=== PATIENT | female | born 1945 | race Caucasian/White ===

== ENCOUNTER 2018-09-04 13:59 | Observation (INO) | payer MEDICARE, BC ==
[2018-09-04] MEDS ORDERED: IPRATROPIUM/ALBUTEROL 0.5-2.5 MG/3 ML AMPUL NEB ONE (14:27)
[2018-09-04] MEDS ORDERED: METHYLPREDNISOLONE INJ 125 MG/2 ML SDV IV ONE (14:28)
[2018-09-04] MEDS ORDERED: ACETAMINOPHEN 325 MG TABLET PO ONE (14:44)
--- NOTE | 2018-09-04 14:44 | ER Document Report ---
ED Medical Screen (RME) - General Chief Complaint: Shortness Of Breath Stated Complaint: DIFFICULTY BREATHING Time Seen by Provider: 09/04/18 14:15 Notes: Patient is a 73-year-old female presents to the emergency department for generalized cough, congestion, chills, shortness of breath, chest tightness upon deep inspiration. Patient states she does have a significant history of asthma does take DuoNeb treatments and prednisone regularly. States she is here visiting and her primary care provider gave her a prescription for prednisone to take "just in case." Patient states she left it at home and has not taking it. Patient states she presents to the emergency department because her respiratory distress increased and she was worried. Patient states she did not recently take any of her albuterol treatments either. GENERAL: Alert, interacts well. Tachypneic LUNGS: Expiratory wheezes heard bilateral bases, no discernible rales, or rhonchi. HEART: Tachycardic rate and rhythm. No murmur I have greeted and performed a rapid initial assessment of this patient. A comprehensive ED assessment and evaluation of the patient, analysis of test results and completion of the medical decision making process will be conducted by additional ED providers. TRAVEL OUTSIDE OF THE [place] IN LAST 30 DAYS: No - Related Data Allergies/Adverse Reactions: atorvastatin [From Lipitor] Allergy (Verified 09/04/18 14:07) azithromycin [From Zithromax] Allergy (Verified 09/04/18 14:07) cephalexin [From Keflex] Allergy (Verified 09/04/18 14:07) estradiol [From Estraderm] Allergy (Verified 09/04/18 14:07) fluvastatin [From Lescol] Allergy (Verified 09/04/18 14:07) gemfibrozil [From Lopid] Allergy (Verified 09/04/18 14:07) levofloxacin [From Levaquin] Allergy (Verified 09/04/18 14:07) metoprolol [From Lopressor] Allergy (Verified 09/04/18 14:07) niacin Allergy (Verified 09/04/18 14:07) pravastatin [From Pravachol] Allergy (Verified 09/04/18 14:07) prednisone [From Deltasone] Allergy (Verified 09/04/18 14:07) tiotropium [From Spiriva with HandiHaler] Allergy (Verified 09/04/18 14:07) Past Medical History - Social History Chew tobacco use (# tins/day): No Frequency of alcohol use: None Drug Abuse: None - Past Medical History Cardiac Medical History: Reports: Hx Hypercholesterolemia, Hx Hypertension Pulmonary Medical History: Reports: Hx Asthma Endocrine Medical History: Reports: Hx Diabetes Mellitus Type 2 Renal/ Medical History: Reports: Hx Kidney Stones. Denies: Hx Peritoneal Dialysis Past Surgical History: Reports: Hx Hysterectomy, Hx Oral Surgery, Hx Orthopedic Surgery - right knee, right shoulder, Hx Tubal Ligation Physical Exam - Vital signs Vitals: Temp Pulse Resp BP Pulse Ox 100.7 F H 131 H 22 H 147/68 H 94 09/04/18 14:10 09/04/18 14:10 09/04/18 14:10 09/04/18 14:10 09/04/18 14:10 Course - Vital Signs Vital signs: Temp Pulse Resp BP Pulse Ox 100.7 F H 131 H 22 H 147/68 H 94 09/04/18 14:10 09/04/18 14:10 09/04/18 14:10 09/04/18 14:10 09/04/18 14:10
[2018-09-04 15:28] LABS: ABSOLUTE EOSINOPHILS # (AUTO) 0.2 10^3/uL (0.0-0.6); ABSOLUTE LYMPHOCYTES (AUTO) 0.9 10^3/uL (0.5-4.7); ABSOLUTE MONOCYTES (AUTO) 0.3 10^3/uL (0.1-1.4); ABSOLUTE NEUT (AUTO) 7.7 10^3/uL (1.7-8.2); BASOPHILS % (AUTO) 0.5 % (0-2); EOSINOPHILS % (AUTO) 2.2 % (0-6); HEMATOCRIT 38.7 % (36.0-47.0); HEMOGLOBIN 13.4 g/dL (12.0-15.5); LYMPHOCYTES % (AUTO) 10.2 % (13-45); MEAN CORPUSCULAR HEMOGLOBIN 27.7 pg (27.0-33.4); MEAN CORPUSCULAR HGB CONC 34.6 g/dL (32.0-36.0); MEAN CORPUSCULAR VOLUME 80 fl (80-97); MONOCYTES % (AUTO) 2.8 % (3-13); PLATELET COUNT 201 10^3/uL (150-450); RED BLOOD COUNT 4.84 10^6/uL (3.72-5.28); RED CELL DISTRIBUTION WIDTH 14.7 % (11.5-14.0); SEGMENTED NEUTROPHILS % (AUTO) 84.3 % (42-78); TOTAL CELLS COUNTED % (AUTO) 100 %; WHITE BLOOD COUNT 9.2 10^3/uL (4.0-10.5)
[2018-09-04 15:31] LABS: APPEARANCE,URINE CLEAR; BILIRUBIN,URINE NEGATIVE (NEGATIVE); COLOR,URINE YELLOW; GLUCOSE, URINE NEGATIVE (NEGATIVE); KETONES,URINE NEGATIVE (NEGATIVE); LEUKOCYTE ESTERASE,URINE NEGATIVE (NEGATIVE); NITRITE,URINE NEGATIVE (NEGATIVE); PROTEIN,URINE NEGATIVE (NEGATIVE); URINE SPECIFIC GRAVITY 1.016; UROBILINOGEN,URINE NEGATIVE mg/dL (<2.0)
[2018-09-04 15:43] LABS: ALANINE AMINOTRANSFERASE 39 U/L (9-52); ALBUMIN 4.9 g/dL (3.5-5.0); ALKALINE PHOSPHATASE 79 U/L (38-126); ANION GAP 12 (5-19); ASPARTATE AMINO TRANSFERASE 24 U/L (14-36); BILIRUBIN,DIRECT 0.2 mg/dL (0.0-0.4); BILIRUBIN,TOTAL 0.8 mg/dL (0.2-1.3); BLOOD UREA NITROGEN 28 mg/dL (7-20); CALCIUM 10.5 mg/dL (8.4-10.2); CARBON DIOXIDE 27 mmol/L (22-30); CHLORIDE 102 mmol/L (98-107); GLUCOSE 164 mg/dL (75-110); POTASSIUM 4.6 mmol/L (3.6-5.0); SODIUM 141.3 mmol/L (137-145)
[2018-09-04 15:50] LABS: A TYPE INFLUENZA AG NEGATIVE (NEGATIVE); B INFLUENZA AG NEGATIVE (NEGATIVE)
--- NOTE | 2018-09-04 16:02 | RADIOLOGY REPORT (SQ) ---
EXAM DESCRIPTION: CHEST 2 VIEWS COMPLETED DATE/TIME: 09/04/2018 3:29 pm REASON FOR STUDY: fever, sob COMPARISON: None. EXAM PARAMETERS: NUMBER OF VIEWS: two views TECHNIQUE: Digital Frontal and Lateral radiographic views of the chest acquired. RADIATION DOSE: NA LIMITATIONS: none FINDINGS: LUNGS AND PLEURA: Triangular density overlying the right anterior 1st rib not seen on the lateral view. This is probably overlapping normal structures or azygos lobe but cannot exclude a pul monary nodule. MEDIASTINUM AND HILAR STRUCTURES: No masses or contour abnormalities. HEART AND VASCULAR STRUCTURES: Heart normal size. No evidence for failure. BONES: No acute findings. HARDWARE: None in the chest. OTHER: No other significant finding. IMPRESSION: Possible right upper lung nodule. No infiltrate. TECHNICAL DOCUMENTATION: JOB ID: [id number]- All Rights Reserved Reading location - IP/workstation name: [email or web address]
[2018-09-04] MEDS ORDERED: NORMAL SALINE 1000 ML 1,000 ML IV ONE (16:12)
--- NOTE | 2018-09-04 16:12 | ER Document Report ---
ED General - General Chief Complaint: Shortness Of Breath Stated Complaint: DIFFICULTY BREATHING Time Seen by Provider: 09/04/18 14:15 TRAVEL OUTSIDE OF THE [place] IN LAST 30 DAYS: No - HPI Notes: Patient is a 73-year-old female that presents to the emergency department for chief complaint of fever and cough. Patient reports fever that began today. She states she had chills with some associated nausea as well. She denies any vomiting abdominal pain or diarrhea. Patient has a history of severe asthma which is managed by her steam blocker back home in [place]. She is on prednisone 10 mg daily. Patient states she has not been on the prednisone since coming to [place] which has been about 7 days since her breathing had been improved. She did have an influenza vaccine this year. She reports cough with no increased sputum. She denies any dysuria or urinary frequency. Patient has received Solu-Medrol, Tylenol, and DuoNeb in triage and currently states she is feeling better. Past Medical History: Asthma Past Surgical History: Reviewed in chart Social History: Denies tobacco and alcohol use Family History: Reviewed and noncontributory for presenting illness Allergies: Reviewed, see documented allergy list. REVIEW OF SYSTEMS: CONSTITUTIONAL : fever chills diaphoresis No recent illness EENT: No vision changes No congestion No sore throat CARDIOVASCULAR: No chest pain No palpitations RESPIRATORY: shortness of breath cough difficulty breathing GASTROINTESTINAL: No abdominal pain nausea No vomiting No diarrhea GENITOURINARY: No dysuria No hematuria No difficulty urinating MUSCULOSKELETAL: No back pain No leg pain No arm pain SKIN: No rashes No lesions LYMPHATIC: No swollen, enlarged glands. NEUROLOGICAL: No lightheadedness No headache No weakness No paresthesias PSYCHIATRIC: No anxiety No depression PHYSICAL EXAMINATION: Vital signs reviewed, nursing noted reviewed. GENERAL: Well-appearing, well-nourished and in no acute distress. HEAD: Atraumatic, normocephalic. EYES: Eyes appear normal, extraocular movements intact, sclera anicteric, conjunctiva are normal. ENT: nares patent, oropharynx clear without exudates. Moist mucous membranes. NECK: Normal range of motion, supple without lymphadenopathy LUNGS: Breath sounds have expiratory wheezing bilaterally with no accessory muscle use or tachypnea HEART: Tachycardic rate and regular rhythm without murmurs ABDOMEN: Soft, nontender, normoactive bowel sounds. No rebound, guarding, or rigidity. No masses appreciated. EXTREMITIES: Nontender, good range of motion, no pitting or edema. NEUROLOGICAL: No focal neurological deficits. Moves all extremities spontaneously Motor and sensory grossly intact on exam. PSYCH: Normal mood, normal affect. SKIN: Warm, Dry, normal turgor, no rashes or lesions noted on exposed skin - Related Data Allergies/Adverse Reactions: atorvastatin [From Lipitor] Allergy (Verified 09/04/18 14:07) azithromycin [From Zithromax] Allergy (Verified 09/04/18 14:07) cephalexin [From Keflex] Allergy (Verified 09/04/18 14:07) estradiol [From Estraderm] Allergy (Verified 09/04/18 14:07) fluvastatin [From Lescol] Allergy (Verified 09/04/18 14:07) gemfibrozil [From Lopid] Allergy (Verified 09/04/18 14:07) levofloxacin [From Levaquin] Allergy (Verified 09/04/18 14:07) metoprolol [From Lopressor] Allergy (Verified 09/04/18 14:07) niacin Allergy (Verified 09/04/18 14:07) pravastatin [From Pravachol] Allergy (Verified 09/04/18 14:07) prednisone [From Deltasone] Allergy (Verified 09/04/18 14:07) tiotropium [From Spiriva with HandiHaler] Allergy (Verified 09/04/18 14:07) Past Medical History - Social History Smoking Status: Never Smoker Chew tobacco use (# tins/day): No Frequency of alcohol use: None Drug Abuse: None Family History: Reviewed & Not Pertinent Patient has suicidal ideation: No Patient has homicidal ideation: No - Past Medical History Cardiac Medical History: Reports: Hx Hypercholesterolemia, Hx Hypertension Pulmonary Medical History: Reports: Hx Asthma Endocrine Medical History: Reports: Hx Diabetes Mellitus Type 2 Renal/ Medical History: Reports: Hx Kidney Stones. Denies: Hx Peritoneal Dialysis Past Surgical History: Reports: Hx Hysterectomy, Hx Oral Surgery, Hx Orthopedic Surgery - right knee, right shoulder, Hx Tubal Ligation Physical Exam - Vital signs Vitals: Temp Pulse Resp BP Pulse Ox 100.7 F H 131 H 22 H 147/68 H 94 09/04/18 14:10 09/04/18 14:10 09/04/18 14:10 09/04/18 14:10 09/04/18 14:10 Course - Re-evaluation Re-evalutation: 09/04/18 16:12 Vitals reviewed. Nursing notes reviewed. Patient is in no acute respiratory distress and oxygenating well on room air. Her symptoms have improved since receiving medication in triage. 09/04/18 17:20 Patient re-evaluated. her oxygen levels have decreased after aerosol treatments. She is now 90% on room air. She is in no acute respiratory distress. Patient was started on 2 L nasal cannula oxygen which improved her saturation to 95%. L elmer sounds are still wheezy bilaterally. Patient's lab work shows lactic acidosis at 2.2. The remainder of her workup is unremarkable. Despite receiving Tylenol and fluids patient has continued to be tachycardic. Her heart rate was in the 130s at presentation and is 115 currently. clinically patient has pneumonia and is meeting sepsis criteria by vital signs and elevated lactate. She was given doxycycline for likely community-acquired pneumonia. Patient's chest x-ray shows an abnormality in the right upper lung which she believes is a result of a trauma that she has had previously. She states there is always something abnormal on her chest x-ray but she cannot further explain what. Since she is requiring oxygen and is meeting sepsis criteria she will be admitted to the hospital for further management. Case discussed with admitting physician. Laboratory 09/04/18 09/04/18 09/04/18 14:34 14:34 14:34 WBC 9.2 RBC 4.84 Hgb 13.4 Hct 38.7 MCV 80 MCH 27.7 MCHC 34.6 RDW 14.7 H Plt Count 201 Seg Neutrophils % 84.3 H Lymphocytes % 10.2 L Monocytes % 2.8 L Eosinophils % 2.2 Basophils % 0.5 Absolute Neutrophils 7.7 Absolute Lymphocytes 0.9 Absolute Monocytes 0.3 Absolute Eosinophils 0.2 Absolute Basophils 0.0 Sodium 141.3 Potassium 4.6 Chloride 102 Carbon Dioxide 27 Anion Gap 12 BUN 28 H Creatinine 1.20 Est GFR ( Amer) 54 L Est GFR (Non-Af Amer) 44 L Glucose 164 H Lactic Acid 2.2 H Calcium 10.5 H Total Bilirubin 0.8 Direct Bilirubin 0.2 Neonat Total Bilirubin Not Reportable Neonat Direct Bilirubin Not Reportable Neonat Indirect Bili Not Reportable AST 24 ALT 39 Alkaline Phosphatase 79 Troponin I Total Protein 8.0 Albumin 4.9 Urine Color Urine Appearance Urine pH Ur Specific [place] Urine Protein Urine Glucose (UA) Urine Ketones Urine Blood Urine Nitrite Urine Bilirubin Urine Urobilinogen Ur Leukocyte Esterase Urine WBC (Auto) Urine RBC (Auto) Urine Bacteria (Auto) Squamous Epi Cells Auto Urine Mucus (Auto) Urine Ascorbic Acid Influenza A (Rapid) Influenza B (Rapid) 09/04/18 09/04/18 09/04/18 14:35 14:39 15:00 WBC RBC Hgb Hct MCV MCH MCHC RDW Plt Count Seg Neutrophils % Lymphocytes % Monocytes % Eosinophils % Basophils % Absolute Neutrophils Absolute Lymphocytes Absolute Monocytes Absolute Eosinophils Absolute Basophils Sodium Potassium Chloride Carbon Dioxide Anion Gap BUN Creatinine Est GFR ( Amer) Est GFR (Non-Af Amer) Glucose Lactic Acid Calcium Total Bilirubin Direct Bilirubin Neonat Total Bilirubin Neonat Direct Bilirubin Neonat Indirect Bili AST ALT Alkaline Phosphatase Troponin I < 0.012 Total Protein Albumin Urine Color YELLOW Urine Appearance CLEAR Urine pH 7.0 Ur Specific [place] 1.016 Urine Protein NEGATIVE Urine Glucose (UA) NEGATIVE Urine Ketones NEGATIVE Urine Blood SMALL H Urine Nitrite NEGATIVE Urine Bilirubin NEGATIVE Urine Urobilinogen NEGATIVE Ur Leukocyte Esterase NEGATIVE Urine WBC (Auto) 14 Urine RBC (Auto) 3 Urine Bacteria (Auto) TRACE Squamous Epi Cells Auto 1 Urine Mucus (Auto) RARE Urine Ascorbic Acid NEGATIVE Influenza A (Rapid) NEGATIVE Influenza B (Rapid) NEGATIVE Chest X-Ray 09/04/18 14:15 IMPRESSION: Possible right upper lung nodule. No infiltrate. - Vital Signs Vital signs: Temp Pulse Resp BP Pulse Ox 100.7 F H 131 H 22 H 147/68 H 94 09/04/18 14:10 09/04/18 14:10 09/04/18 14:10 09/04/18 14:10 09/04/18 14:10 - Laboratory Result Diagrams: 09/04/18 14:34 09/04/18 14:34 Laboratory results interpreted by me: 09/04/18 09/04/18 09/04/18 14:34 14:34 14:34 RDW 14.7 H Seg Neutrophils % 84.3 H Lymphocytes % 10.2 L Monocytes % 2.8 L BUN 28 H Est GFR ( Amer) 54 L Est GFR (Non-Af Amer) 44 L Glucose 164 H Lactic Acid 2.2 H Calcium 10.5 H Urine Blood 09/04/18 14:35 RDW Seg Neutrophils % Lymphocytes % Monocytes % BUN Est GFR ( Amer) Est GFR (Non-Af Amer) Glucose Lactic Acid Calcium Urine Blood SMALL H Discharge - Discharge Clinical Impression: Elevated lactic acid level Pneumonia Qualifiers: Pneumonia type: due to unspecified organism Laterality: right Lung location: upper lobe of lung Qualified Code(s): J18.1 - Lobar pneumonia, unspecified organism Sepsis Qualifiers: Sepsis type: sepsis due to unspecified organism Qualified Code(s): A41.9 - Sepsis, unspecified organism Condition: Stable Disposition: ADMITTED INPATIENT Admitting Provider: Hospitalist Unit Admitted: Telemetry
[2018-09-04] MEDS ORDERED: KETOROLAC TROMETHAMINE INJ/PF 30 MG/1 ML SDV IV ONE (17:03)
[2018-09-04] MEDS ORDERED: DOXYCYCLINE HYCLATE INJ 100 MG VIAL IV ONE (17:18)
[2018-09-04] MEDS ORDERED: ACETAMINOPHEN 325 MG TABLET PO PRN (18:27)
[2018-09-04] MEDS ORDERED: NORMAL SALINE 1000 ML 1,000 ML IV PRN (18:27)
[2018-09-04] MEDS ORDERED: PROMETHAZINE HCL 25 MG TABLET PO PRN (18:27)
[2018-09-04] MEDS ORDERED: OXYCODONE-ACETAMINOPHEN 5-325 MG TABLET PO PRN (18:27)
[2018-09-04] MEDS ORDERED: GLUCAGON,HUMAN RECOMB 1 MG INJ IM PRN (18:41)
[2018-09-04] MEDS ORDERED: DEXTROSE 50%-WATER 25 GM/50 ML DISP.SYRIN IV PRN ×2 (18:41)
[2018-09-04] MEDS ORDERED: DEXTROSE 40% GEL 15 GM TUBE PO PRN ×2 (18:41)
--- NOTE | 2018-09-04 18:41 | PDOC H&P ---
History of Present Illness History of Present Illness: JUAN GONZALES is a 73 year old female history of COPD, severe persistent asthma, retention, diabetes, obstructive sleep apnea, GERD status post fundoplication visiting [place] from [place] family visit presented to ED complaining of fever, chills, productive nonbloody cough, shortness of breath, nausea 1 days. She has been on prednisone for her severe persistent asthma and she tapered off her prednisone 6 days ago. She denies any pain, abdominal pain, diarrhea, constipation, or any urinary symptoms. In ED she was found to be hypertensive, febrile, tachypneic and tachycardic with lactic acid of 2.2. Influenza A/B negative. Chest x-ray negative for any pneumonia. She was a started on volume resuscitation, given acetaminophen, IV steroids, doxycycline and breathing treatment. Hospital was consulted for admission. Past Medical History Cardiac Medical History: Reports: Hyperlipidema, Hypertension Pulmonary Medical History: Reports: Asthma Endocrine Medical History: Reports: Diabetes Mellitus Type 2 Past Surgical History Past Surgical History: Reports: Hysterectomy, Orthopedic Surgery - right knee, right shoulder, Tubal Ligation Social History Smoking Status: Never Smoker Family History Family History: Reviewed & Not Pertinent Parental Family History Reviewed: Yes Children Family History Reviewed: Yes Sibling(s) Family History Reviewed.: Yes Medication/Allergy Allergies/Adverse Reactions: atorvastatin [From Lipitor] Allergy (Verified 09/04/18 14:07) azithromycin [From Zithromax] Allergy (Verified 09/04/18 14:07) cephalexin [From Keflex] Allergy (Verified 09/04/18 14:07) estradiol [From Estraderm] Allergy (Verified 09/04/18 14:07) fluvastatin [From Lescol] Allergy (Verified 09/04/18 14:07) gemfibrozil [From Lopid] Allergy (Verified 09/04/18 14:07) levofloxacin [From Levaquin] Allergy (Verified 09/04/18 14:07) metoprolol [From Lopressor] Allergy (Verified 09/04/18 14:07) niacin Allergy (Verified 09/04/18 14:07) pravastatin [From Pravachol] Allergy (Verified 09/04/18 14:07) prednisone [From Deltasone] Allergy (Verified 09/04/18 14:07) tiotropium [From Spiriva with HandiHaler] Allergy (Verified 09/04/18 14:07) Review of Systems Review of Systems: as per hpi Physical Exam Vital Signs: Temp Pulse Resp BP Pulse Ox 100.7 F H 131 H 22 H 147/68 H 94 09/04/18 14:10 09/04/18 14:10 09/04/18 14:10 09/04/18 14:10 09/04/18 14:10 Intake & Output 09/03/18 09/04/18 09/05/18 06:59 06:59 06:59 Weight 80 kg General appearance: PRESENT: mild distress, obese Head exam: PRESENT: atraumatic, normocephalic Respiratory exam: PRESENT: clear to auscultation tasia, decreased breath sounds. ABSENT: rales, rhonchi, wheezes Cardiovascular exam: PRESENT: RRR, tachycardia. ABSENT: diastolic murmur, rubs, systolic murmur Vascular exam: PRESENT: normal capillary refill Extremities exam: PRESENT: full ROM. ABSENT: calf tenderness, clubbing, pedal edema Neurological exam: PRESENT: alert, awake, oriented to person, oriented to place, oriented to time, oriented to situation, CN II-XII grossly intact. ABSENT: motor sensory deficit Results Laboratory Results: 09/04/18 14:34 09/04/18 14:34 09/04/18 09/04/18 09/04/18 14:34 14:34 14:34 WBC 9.2 RBC 4.84 Hgb 13.4 Hct 38.7 MCV 80 MCH 27.7 MCHC 34.6 RDW 14.7 H Plt Count 201 Seg Neutrophils % 84.3 H Lymphocytes % 10.2 L Monocytes % 2.8 L Eosinophils % 2.2 Basophils % 0.5 Absolute Neutrophils 7.7 Absolute Lymphocytes 0.9 Absolute Monocytes 0.3 Absolute Eosinophils 0.2 Absolute Basophils 0.0 Sodium 141.3 Potassium 4.6 Chloride 102 Carbon Dioxide 27 Anion Gap 12 BUN 28 H Creatinine 1.20 Est GFR ( Amer) 54 L Est GFR (Non-Af Amer) 44 L Glucose 164 H Lactic Acid 2.2 H Calcium 10.5 H Total Bilirubin 0.8 AST 24 ALT 39 Alkaline Phosphatase 79 Total Protein 8.0 Albumin 4.9 Urine Color Urine Appearance Urine pH Ur Specific [place] Urine Protein Urine Glucose (UA) Urine Ketones Urine Blood Urine Nitrite Ur Leukocyte Esterase Urine WBC (Auto) Urine RBC (Auto) 09/04/18 14:35 WBC RBC Hgb Hct MCV MCH MCHC RDW Plt Count Seg Neutrophils % Lymphocytes % Monocytes % Eosinophils % Basophils % Absolute Neutrophils Absolute Lymphocytes Absolute Monocytes Absolute Eosinophils Absolute Basophils Sodium Potassium Chloride Carbon Dioxide Anion Gap BUN Creatinine Est GFR ( Amer) Est GFR (Non-Af Amer) Glucose Lactic Acid Calcium Total Bilirubin AST ALT Alkaline Phosphatase Total Protein Albumin Urine Color YELLOW Urine Appearance CLEAR Urine pH 7.0 Ur Specific [place] 1.016 Urine Protein NEGATIVE Urine Glucose (UA) NEGATIVE Urine Ketones NEGATIVE Urine Blood SMALL H Urine Nitrite NEGATIVE Ur Leukocyte Esterase NEGATIVE Urine WBC (Auto) 14 Urine RBC (Auto) 3 09/04/18 14:39 Troponin I < 0.012 Impressions: Chest X-Ray 09/04/18 14:15 IMPRESSION: Possible right upper lung nodule. No infiltrate. Assessment & Plan - Diagnosis (1) SIRS (systemic inflammatory response syndrome) Is this a current diagnosis for this admission?: Yes Plan: Likely due to underlying pneumonia. Volume resuscitation. Empiric antibiotics. Follow-up sputum blood and urine culture. (2) Asthma with COPD with exacerbation Is this a current diagnosis for this admission?: Yes Plan: IV steroids, empiric antibiotics, BiPAP, duo nebs, supplemental oxygen. (3) HTN (hypertension) Is this a current diagnosis for this admission?: Yes Plan: Start home meds. Adjust meds as needed. (4) Diabetes Qualifiers: Diabetes mellitus type: type 2 Is this a current diagnosis for this admission?: No Plan: Diabetic diet, long-acting insulin, lispro before meal, sliding scale insulin. Adjust dosage as needed. (5) SOM (obstructive sleep apnea) Is this a current diagnosis for this admission?: Yes Plan: Sternal CPAP. Outpatient pulmonary follow-up. (6) Pneumonia Qualifiers: Pneumonia type: due to unspecified organism Laterality: right Lung location: upper lobe of lung Qualified Code(s): J18.1 - Lobar pneumonia, unspecified organism Is this a current diagnosis for this admission?: Yes Plan: Continue empiric antibiotics. Patient is allergic to multiple antibiotics. Follow-up sputum and blood cultures.
[2018-09-04] MEDS ORDERED: BUTALB/ACETAMINOPHEN/CAFFEINE 1 TAB EACH PO PRN (18:42)
[2018-09-04] MEDS ORDERED: DIAZEPAM 5 MG TABLET PO PRN (18:42)
[2018-09-04] MEDS: FUROSEMIDE 20 MG TABLET PO SCH (19:09)
[2018-09-04] MEDS: LISINOPRIL 10 MG TABLET PO SCH ×2 (19:09→19:12)
[2018-09-04 19:46] LABS: ARTERIAL BLOOD BASE EXCESS -1.3 mmol/L; ARTERIAL BLOOD FIO2 2L; ARTERIAL BLOOD H2CO3 1.08 mmol/L (1.05-1.35); ARTERIAL BLOOD HCO3 22.8 mmol/L (20-24); ARTERIAL BLOOD O2 SATURATION 80.5 % (94-98); ARTERIAL BLOOD PCO2 35.8 mmHg (35-45); ARTERIAL BLOOD PH 7.42 (7.35-7.45); ARTERIAL BLOOD PO2 43.3 mmHg (80-100); ARTERIAL BLOOD TOTAL CO2 23.9 mmol/L (21-25)
[2018-09-04] MEDS: IPRATROPIUM/ALBUTEROL 0.5-2.5 MG/3 ML AMPUL NEB SCH (20:35)
[2018-09-04] MEDS: METHYLPREDNISOLONE INJ 125 MG/2 ML SDV IV SCH (22:07)
[2018-09-04] MEDS: DOXYCYCLINE HYCLATE 100 MG in DEXTROSE 5%-WATER 250 ML IV SCH (22:08)
[2018-09-04] MEDS: INSULIN LISPRO 100 UNIT/ML 3 ML VIAL SUBCUT SCH (22:33)
[2018-09-05] MEDS: METHYLPREDNISOLONE INJ 125 MG/2 ML SDV IV SCH (05:05)
[2018-09-05] MEDS ORDERED: LANSOPRAZOLE 30 MG TAB.RAP.DR PO SCH (06:00)
[2018-09-05 06:53] LABS: ALANINE AMINOTRANSFERASE 27 U/L (9-52); ALBUMIN 3.8 g/dL (3.5-5.0); ALKALINE PHOSPHATASE 60 U/L (38-126); ANION GAP 13 (5-19); ASPARTATE AMINO TRANSFERASE 20 U/L (14-36); BILIRUBIN,DIRECT 0.3 mg/dL (0.0-0.4); BILIRUBIN,TOTAL 0.5 mg/dL (0.2-1.3); BLOOD UREA NITROGEN 33 mg/dL (7-20); CALCIUM 9.3 mg/dL (8.4-10.2); CARBON DIOXIDE 22 mmol/L (22-30); CHLORIDE 103 mmol/L (98-107); POTASSIUM 4.6 mmol/L (3.6-5.0); SODIUM 137.6 mmol/L (137-145); TOTAL PROTEIN 6.2 g/dL (6.3-8.2)
[2018-09-05 06:55] LABS: ABSOLUTE LYMPHOCYTES (AUTO) 0.8 10^3/uL (0.5-4.7); ABSOLUTE MONOCYTES (AUTO) 0.1 10^3/uL (0.1-1.4); ABSOLUTE NEUT (AUTO) 9.3 10^3/uL (1.7-8.2); BASOPHILS % (AUTO) 0.1 % (0-2); HEMATOCRIT 33.2 % (36.0-47.0); LYMPHOCYTES % (AUTO) 7.4 % (13-45); MEAN CORPUSCULAR HEMOGLOBIN 27.8 pg (27.0-33.4); MEAN CORPUSCULAR VOLUME 82 fl (80-97); PLATELET COUNT 167 10^3/uL (150-450); RED BLOOD COUNT 4.06 10^6/uL (3.72-5.28); RED CELL DISTRIBUTION WIDTH 14.3 % (11.5-14.0); SEGMENTED NEUTROPHILS % (AUTO) 91.5 % (42-78); TOTAL CELLS COUNTED % (AUTO) 100 %; WHITE BLOOD COUNT 10.2 10^3/uL (4.0-10.5)
[2018-09-05 06:56] LABS: HEMOGLOBIN 11.3 g/dL (12.0-15.5)
[2018-09-05 07:07] LABS: GLUCOSE 418 mg/dL (75-110)
[2018-09-05] MEDS: INSULIN LISPRO 100 UNIT/ML 3 ML VIAL SUBCUT SCH ×2 (08:30→12:39)
[2018-09-05 08:53] VITALS: BP 137/71
[2018-09-05] MEDS: IPRATROPIUM/ALBUTEROL 0.5-2.5 MG/3 ML AMPUL NEB SCH ×2 (09:04→11:45)
[2018-09-05] MEDS: LISINOPRIL 10 MG TABLET PO SCH (09:35)
[2018-09-05] MEDS: FUROSEMIDE 20 MG TABLET PO SCH (09:35)
[2018-09-05] MEDS: DOXYCYCLINE HYCLATE 100 MG in DEXTROSE 5%-WATER 250 ML IV SCH (09:37)
[2018-09-05] MEDS ORDERED: ASPIRIN 81 MG TABLET, CHEWABLE PO SCH (10:00)
[2018-09-05] MEDS ORDERED: DOCUSATE SODIUM 100 MG/10 ML UDC PO SCH (10:00)
[2018-09-05] MEDS ORDERED: ENOXAPARIN SODIUM INJ 40 MG/0.4 ML DISP.SYRIN SUBCUT SCH (10:00)
[2018-09-05] MEDS ORDERED: PREDNISONE 20 MG TABLET PO SCH (12:00)
--- NOTE | 2018-09-05 16:28 | PDOC DISCHARGE SUMMARY ---
General - Admit/Disc Date/PCP Admission Date/Primary Care Provider: 09/04/18 18:19 Discharge Date: 09/05/18 - Discharge Diagnosis (1) Asthma with COPD with exacerbation Is this a current diagnosis for this admission?: Yes - Additional Information Resuscitation Status: Full Code Discharge Diet: Diabetic Discharge Activity: Activity As Tolerated, Balance Activity w/Rest Prescriptions: Prednisone [Deltasone] 40 mg PO BID 5 Days #20 tablet Home Medications: Aspirin [Ecotrin 81 mg EC Tablet] 81 mg PO DAILY 09/04/18 Bifidobacterium Infantis [Align 4 mg Capsule] 1 cap PO DAILY 09/04/18 Budesonide/Formoterol Fumarate [Symbicort HFA 160-4.5 mcg Inhaler 6 gm] 2 puff IH Q12 09/04/18 Calcium Carbonate [Calcium] 600 mg PO DAILY 09/04/18 Cholecalciferol (Vitamin D3) [Vitamin D3 1000 Unit Tablet] 2,000 unit PO DAILY 09/04/18 Fluocinonide [Lidex-E 0.05% Cream 15 gm] 2 applic NASL ASDIR PRN 09/04/18 Furosemide [Lasix 20 mg Tablet] 20 mg PO Q48H MDD NEXT DOSE 09-05-18 09/04/18 Ipratropium [place] [Atrovent Hfa Inhalation Aerosol 12.9 gm Mdi] 2 puff IH DAILY 09/04/18 Lisinopril [Prinivil 10 mg Tablet] 20 mg PO DAILY 09/04/18 Metformin HCl [Metformin HCl ER] 500 mg PO DAILY 09/04/18 Montelukast Sodium [Singulair 10 mg Tablet] 10 mg PO QHS 09/04/18 Polyethylene Glycol 3350 [Miralax Powder 17 gm/Packet] 1 packet PO DAILY 09/04/18 Rosuvastatin Calcium [Crestor 10 mg Tablet] 10 mg PO DAILY 09/04/18 Zolpidem Tartrate [Ambien 5 mg Tablet] 5 mg PO HSP PRN 09/04/18 Prednisone [Deltasone] 40 mg PO BID 5 Days #20 tablet 09/05/18 History of Present Illness History of Present Illness: Admitting hospitalist's H&P: JUAN GONZALES is a 73 year old female history of COPD, severe persistent asthma, retention, diabetes, obstructive sleep apnea, GERD status post fundoplication visiting [place] from [place] family visit presented to ED complaining of fever, chills, productive nonbloody cough, shortness of breath, nausea 1 days. She has been on prednisone for her severe persistent asthma and she tapered off her prednisone 6 days ago. She denies any pain, abdominal pain, diarrhea, constipation, or any urinary symptoms. Hospital Course Hospital Course: Patient was admitted for COPD exacerbation. She did have significant SOB and wheezing on admission. She is not on home O2. She only required 2 lpm via NC. She was started on IV steroids, breathing treatments and doxycycline due to her multiple antibiotic allergies. She had dramatic improvement overnight. Upon encounter this morning, she had clear breath sounds. She says her breathing has significantly improved and she is back to her baseline. She was weaned off O2. She ambulated on the hallway on room air with no acute issue. Her chest x-ray was negative for pneumonia. It showed a possible RUL nodule and patient says this is chronic and that her applied behavior specialist in [place] is aware of this and has told her it's a scar tissue. Her A1c trended up to 8 from 7.1 from her PCP's work up last month. Recommended increasing her metformin to 500 mg bid from daily dosing. Her UA showed possible UTI but patient denies any urinary symptom or complaint. Her asymtomatic bacteriuria will not be treated with antibiotics at this time. She will given 5 more days of prednisone. She is only on a short visit here in [place] and she will follow up with her doctors in [place]. Physical Exam Vital Signs: Temp Pulse Resp BP Pulse Ox 97.5 F 72 14 137/71 H 93 09/05/18 12:51 09/05/18 12:51 09/05/18 12:51 09/05/18 08:05 09/05/18 12:51 Intake & Output 09/04/18 09/05/18 09/06/18 06:59 06:59 06:59 Intake Total 1250 1250 Balance 1250 1250 Weight 135 lb 12.876 oz General appearance: PRESENT: no acute distress, well-developed, well-nourished Head exam: PRESENT: atraumatic, normocephalic Eye exam: PRESENT: conjunctiva pink, EOMI, PERRLA. ABSENT: scleral icterus Ear exam: PRESENT: normal external ear exam Mouth exam: PRESENT: moist, tongue midline Neck exam: ABSENT: carotid bruit, JVD, lymphadenopathy, thyromegaly Respiratory exam: PRESENT: clear to auscultation tasia. ABSENT: rales, rhonchi, wheezes Cardiovascular exam: PRESENT: RRR. ABSENT: diastolic murmur, rubs, systolic murmur Pulses: PRESENT: normal dorsalis pedis pul GI/Abdominal exam: PRESENT: normal bowel sounds, soft. ABSENT: distended, guarding, mass, organolmegaly, rebound, tenderness Rectal exam: PRESENT: deferred Extremities exam: PRESENT: full ROM. ABSENT: calf tenderness, clubbing, pedal edema Neurological exam: PRESENT: alert, awake, oriented to person, oriented to place, oriented to time, oriented to situation, CN II-XII grossly intact. ABSENT: motor sensory deficit Results Laboratory Results: 09/05/18 05:43 09/05/18 05:43 09/04/18 09/05/18 09/05/18 19:24 05:43 05:43 WBC 10.2 RBC 4.06 Hgb 11.3 L D Hct 33.2 L MCV 82 MCH 27.8 MCHC 34.0 RDW 14.3 H Plt Count 167 Seg Neutrophils % 91.5 H Lymphocytes % 7.4 L Monocytes % 1.0 L Eosinophils % 0.0 Basophils % 0.1 Absolute Neutrophils 9.3 H Absolute Lymphocytes 0.8 Absolute Monocytes 0.1 Absolute Eosinophils 0.0 Absolute Basophils 0.0 Carbonic Acid 1.08 HCO3/H2CO3 Ratio 21:1 ABG pH 7.42 ABG pCO2 35.8 ABG pO2 43.3 L ABG HCO3 22.8 ABG O2 Saturation 80.5 L ABG Base Excess -1.3 FiO2 2L Sodium 137.6 Potassium 4.6 Chloride 103 Carbon Dioxide 22 Anion Gap 13 BUN 33 H Creatinine 1.26 H Est GFR ( Amer) 51 L Est GFR (Non-Af Amer) 42 L Glucose 418 H* Calcium 9.3 Magnesium 1.7 Total Bilirubin 0.5 AST 20 ALT 27 Alkaline Phosphatase 60 Total Protein 6.2 L Albumin 3.8 09/04/18 14:39 Troponin I < 0.012 Impressions: Chest X-Ray 09/04/18 14:15 IMPRESSION: Possible right upper lung nodule. No infiltrate. Qualifiers - * PATIENT BEING DISCHARGED WITH ANY OF THE FOLLOWING DIAGNOSIS: No
[2018-09-05] MEDS ORDERED: DOXYCYCLINE HYCLATE 100 MG in DEXTROSE 5%-WATER 250 ML IV SCH (22:00)
--- NOTE | 2018-09-06 10:10 | EKG REPORT ---
SEVERITY:- BORDERLINE ECG - SINUS TACHYCARDIA PROBABLE LEFT ATRIAL ABNORMALITY BORDERLINE T ABNORMALITIES, ANT-LAT LEADS : Confirmed by: Ty Campbell 06-Sep-2018 10:09:17
== END 2018-09-05 13:59 | disposition home or self-care (01) ==
LOC: ER 13:59 → EH 18:19 → INTOOBSV 18:19 → UNDOADMIN 18:19 → 3S 09-05 02:12
PROVIDERS: ADMIT Internal Medicine; ATTEND Internal Medicine
DX: J44.1 Chronic obstructive pulmonary disease with (acute) exacerbation (principal); J45.51 Severe persistent asthma with (acute) exacerbation; R05 Cough; R50.9 Fever, unspecified; R11.0 Nausea; R00.0 Tachycardia, unspecified; I10 Essential (primary) hypertension; E78.5 Hyperlipidemia, unspecified; G47.33 Obstructive sleep apnea (adult) (pediatric); R91.8 Other nonspecific abnormal finding of lung field; Z79.82 Long term (current) use of aspirin; R79.89 Other specified abnormal findings of blood chemistry; Z79.899 Other long term (current) drug therapy; E11.9 Type 2 diabetes mellitus without complications; M62.81 Muscle weakness (generalized); Z88.1 Allergy status to other antibiotic agents; Z98.890 Other specified postprocedural states; Z79.51 Long term (current) use of inhaled steroids; Z79.52 Long term (current) use of systemic steroids; Z87.442 Personal history of urinary calculi; Z79.84 Long term (current) use of oral hypoglycemic drugs; Z87.828 Personal history of other (healed) physical injury and trauma
CPT/HCPCS: 93005; 94640 ×3; 99285; 96361; 96375; 96365; 36415 ×2; 87040; 87086; 82962 ×2; 82803; 83605; 83735; 85025 ×2; 87088; 80053 ×2; 81001; 84484; 87186; 83036; 87804; 71046; 93010; 94660; 97116; 97161; A9270 ×13; J3490 ×2; J2930 ×2; J1885; J7060 ×2; J7030 ×2; G0378; J1815; J7512; J7620